=== PATIENT | male | born 1960 | race African-American/Black ===

== ENCOUNTER 2021-12-13 04:13 | Observation (INO) | payer SELFPAY ==
[~2021-12-13] VITALS: Ht 172.7 cm; Wt 54.4 kg
[2021-12-13] MEDS ORDERED: IV NORMAL SALINE 1000ML BAG 1,000 ML IV ONE (05:45)
--- NOTE | 2021-12-13 05:49 | PHYS DOC ---
Adult General Chief Complaint Chief Complaint: HYPERTENSION HPI HPI The patient is a 61-year-old male with a history of hypertension and bipolar disorder, noncompliant with antihypertensive medication for some time. He is a smoker. He presents for evaluation of multiple concerns. First, patient is a worker at [employer] and at about 2 AM this morning, about 3 hours prior to arrival, he began feeling lightheaded at work, as though he would faint, but did not. Associated mild nausea at times. Second, patient notes about 3 weeks of gross hematuria in association with intermittent discomfort to his right and left lower abdomen. States he has never had this before. No associated fevers, vomiting, upper respiratory congestion/rhinorrhea, cough, sore throat, shortness of breath or chest pain of any kind, flank pain, midline back pain, dysuria, polyuria or oliguria, groin pain, changes in bowel habits, pain or swelling to arms or legs. Patient is alert and pleasantly and appropriately interactive and in no acute distress with appropriate vital signs aside from elevated blood pressure upon initial evaluation here in the emergency department. (TOYIN MÉNDEZ MD) Review of Systems Review of Systems A 12 point review of systems was completed and was negative except where noted in HPI above. (TOYIN MÉNDEZ MD) Current Medications Current Medications Current Medications Medications (Trade) Dose Ordered Sig/Parveen Start Time Stop Time Status Last Admin Dose Admin Acetaminophen (Tylenol) 650 mg PRN Q4HRS PRN 12/13/21 07:15 12/14/21 07:14 Amlodipine Besylate (Norvasc) 10 mg 1X STAT 12/13/21 05:39 12/13/21 06:38 DC Info (CONTRAST GIVEN -- Rx MONITORING) 1 each PRN DAILY PRN 12/13/21 06:45 12/15/21 06:44 Iohexol (Omnipaque 300 Mg/ml) 75 ml 1X ONCE 12/13/21 06:45 12/13/21 06:46 DC 12/13/21 06:43 75 ML Ondansetron HCl (Zofran) 4 mg PRN Q8HRS PRN 12/13/21 07:15 12/14/21 07:14 Sodium Chloride 1,000 ml @ 1,000 mls/hr 1X ONCE 12/13/21 05:45 12/13/21 06:44 DC (BLAIR WAGONER DO) Allergies Allergies Allergies Coded Allergies Type Severity Reaction Last Updated Verified No Known Drug Allergies 12/13/21 No (BLAIR WAGONER DO) Physical Exam Physical Exam 61-year-old male appearing nontoxic and in no acute distress. Head is normocephalic and atraumatic. Neck is supple and nontender. Oropharynx is mo ist. Lungs are clear to auscultation at all stations. There is a normal S1 and S2 without rubs or gallops and capillary refill is appropriate, less than 2 seconds globally. Abdomen is soft, nontender and nondistended. No pulsatile mass. Skin is warm and dry without cyanosis, clubbing or edema. Psychiatrically, the patient demonstrates appropriate mood and affect and is alert. Neurologically, cranial nerves II through XII are intact and there are no lateralizing deficits seen. Speech is normal. Language is normal. Coordination is normal. There is no dysmetria with [id number] or h eel-to-nathan bilaterally. Strength is 5 out of 5 in all joints of bilateral upper and lower extremities. Sensation is intact light touch in bilateral upper and lower extremities. Patient ambulates with a narrow, steady, non-ataxic gait here in the emergency department and is alert and oriented x4. Evaluation of the extremities reveals BUEs and BLEs neurovascularly intact distally with strength 5 out of 5, sensation intact light touch in all nerve distributions, radial, DP and PT pulses 2+ and equal bilaterally, capillary refill less than 2 seconds, hands and feet warm and well-perfused. No dependent peripheral edema distally. No calf tenderness swelling bilaterally. Swati's test is negative bilaterally. (TOYIN MÉNDEZ MD) Current Patient Data Vital Signs Vital Signs Date Time Temp Pulse Resp B/P (MAP) Pulse Ox O2 Delivery O2 Flow Rate FiO2 12/13/21 05:36 97.6 83 18 200/122 (148) 100 Room Air 97.6 (BLAIR WAGONER DO) Lab Values Laboratory Tests Test 12/13/21 05:45 White Blood Count 6.1 x10^3/uL (4.0-11.0) Red Blood Count 4.27 x10^6/uL (4.30-5.70) L Hemoglobin 12.9 g/dL (13.0-17.5) L Hematocrit 37.8 % (39.0-53.0) L Mean Corpuscular Volume 89 fL (79-100) Mean Corpuscular Hemoglobin 30 pg (25-35) Mean Corpuscular Hemoglobin Concent 34 g/dL (31-37) Red Cell Distribution Width 14.4 % (11.5-14.5) Platelet Count 124 x10^3/uL (140-400) L Neutrophils (%) (Auto) 73 % (31-73) Lymphocytes (%) (Auto) 15 % (24-48) L Monocytes (%) (Auto) 9 % (0-9) Eosinophils (%) (Auto) 3 % (0-3) Basophils (%) (Auto) 1 % (0-3) Neutrophils # (Auto) 4.5 x10^3/uL (1.8-7.7) Lymphocytes # (Auto) 0.9 x10^3/uL (1.0-4.8) L Monocytes # (Auto) 0.5 x10^3/uL (0.0-1.1) Eosinophils # (Auto) 0.2 x10^3/uL (0.0-0.7) Basophils # (Auto) 0.0 x10^3/uL (0.0-0.2) Prothrombin Time 12.7 SEC (11.7-14.0) Prothrombin Time INR 1.0 (0.8-1.1) Activated Partial Thromboplast Time 27 SEC (24-38) Urine Collection Type Unknown Urine Color Yellow Urine Clarity Clear Urine pH 6.5 (<5.0-8.0) Urine Specific [place] 1.015 (1.000-1.030) Urine Protein Negative mg/dL (NEG-TRACE) Urine Glucose (UA) 250 mg/dL (NEG) Urine Ketones (Stick) Negative mg/dL (NEG) Urine Blood Negative (NEG) Urine Nitrite Negative (NEG) Urine Bilirubin Negative (NEG) Urine Urobilinogen Dipstick 1.0 mg/dL (0.2 mg/dL) Urine Leukocyte Esterase Negative (NEG) Urine RBC 0 /HPF (0-2) Urine WBC 0 /HPF (0-4) Urine Squamous Epithelial Cells Few /LPF Urine Bacteria 0 /HPF (0-FEW) Sodium Level 138 mmol/L (136-145) Potassium Level 3.9 mmol/L (3.5-5.1) Chloride Level 103 mmol/L (98-107) Carbon Dioxide Level 29 mmol/L (21-32) Anion Gap 6 (6-14) Blood Urea Nitrogen 23 mg/dL (8-26) Creatinine 1.4 mg/dL (0.7-1.3) H Estimated GFR (Cockcroft-Gault) 61.9 BUN/Creatinine Ratio 16 (6-20) Glucose Level 91 mg/dL (70-99) Calcium Level 8.5 mg/dL (8.5-10.1) Total Bilirubin 1.0 mg/dL (0.2-1.0) Aspartate Amino Transferase (AST) 28 U/L (15-37) Alanine Aminotransferase (ALT) 23 U/L (16-63) Alkaline Phosphatase 87 U/L (46-116) Troponin I High Sensitivity 17 ng/L (4-75) Total Protein 7.4 g/dL (6.4-8.2) Albumin 3.5 g/dL (3.4-5.0) Albumin/Globulin Ratio 0.9 (1.0-1.7) L Laboratory Tests 12/13/21 05:45 Laboratory Tests 12/13/21 05:45 (BLAIR WAGONER DO) EKG EKG Sinus rhythm, rate 82, no acute ST elevation or depression, [place] 182, QRS 78, QTc 447, EP interpretation. Nonischemic tracing, intervals appropriate. (TOYIN MÉNDEZ MD) Radiology/Procedures Radiology/Procedures [] (TOYIN MÉNDEZ MD) Radiology/Procedures [facility] [address] [place], [place] [id number] IMAGING REPORT Signed PATIENT: TAYLOR WILLOUGHBYOUNT: [id number] : 1960 LOCATION: ER AGE: 61 SEX: M EXAM STATUS: REG ER ORD. PHYSICIAN: TOYIN MÉNDEZ MD REASON: lightheadedness PROCEDURE: CHEST AP ONLY XR CHEST 1V 12/13/2021 6:20 AM INDICATION: Lightheadedness COMPARISON: None available TECHNIQUE: Portable frontal view of the chest is provided. FINDINGS: The cardiomediastinal silhouette is within normal limits. Lungs are clear. There are no significant pleural effusions. There is no pulmonary vascular congestion. No pneumothorax. No suspicious osseous abnormality. IMPRESSION: There is no acute cardiopulmonary process. Electronically signed by: Valentino Pittman MD (12/13/2021 6:33 AM) [facility] DICTATED and SIGNED BY: VALENTINO PITTMAN MD DATE: 12/13/21 [id number] 0 [facility] [address] [place] [address] IMAGING REPORT Signed PATIENT: TAYLOR WILLOUGHBYOUNT: [id number] : 1960 LOCATION: ER AGE: 61 SEX: M EXAM STATUS: REG ER ORD. PHYSICIAN: TOYIN MÉNDEZ MD REASON: BLQ abd pain, hematuria x 3 weeks;OMNI 300, 75ML PROCEDURE: CT ABD PELV W/ IV CONTRST ONLY PQRS Compliance Statement: One or more of the following individualized dose reduction techniques were utilized for this examination: 1. Automated exposure control 2. Adjustment of the mA and/or kV according to patient size 3. Use of iterative reconstruction technique CT abdomen/pelvis with contrast 12/13/2021 6:44 AM INDICATION: Bilateral lower quadrant abdominal pain, hematuria for 3 weeks COMPARISON: None available TECHNIQUE: Multiple axial CT images of the abdomen and pelvis were obtained after the intravenous administration of 75 mL Omnipaque 300. Coronal and sagittal reformats are provided. FINDINGS: There is minimal bibasilar subsegmental atelectasis. Heart size is within normal limits. 5 mm hypodensity within the right hepatic dome is too small characterize, however statistically favored represent benign etiology such as a simple cyst or hemangioma additional indeterminate hypoattenuating lesion identified in the medial segment left hepatic lobe (series 2, image 13) measuring 0.9 cm. Spleen, adrenal glands, pancreas and gallbladder are normal in appearance. Abdominal aorta is normal in course and caliber. There is a borderline enlarged gastrohepatic lymph node measuring 1.2 cm (series 2, image 11). Simple appearing right renal cysts measure up to 0.9 cm in the interpolar right kidney. The kidneys enhance symmetrically. There is no suspicious renal mass. There is no hydronephrosis. There are no suspected calculi within the kidneys, ureters or urinary bladder. Moderate amount of stool noted throughout the colon. Small and large bowel are normal in caliber. There is no evidence for bowel obstruction. There are no pericolonic inflammatory changes. A normal, nondilated appendix is visualized without adjacent inflammatory changes. Urinary bladder within normal limits given degree of distention. Prostate mildly enlarged measuring 4.4 x 4.6 cm. No suspicious osseous abnormality. IMPRESSION: No findings to suggest obstructive uropathy. No calculi within the ureters or urinary bladder. Prostate mildly enlarged. Correlate with PSA. Indeterminate 9 mm hypoattenuating lesion within the medial segment left hepatic lobe. Findings favor benign etiology such as a simple cyst or hemangioma in the absence of underlying malignancy. Moderate amount stool noted throughout the colon. Nonspecific gastrohepatic lymph node measures 1.2 cm. 3 month follow-up CT abdomen could be of benefit to assess for stability. Correlate with any prior history of gastritis. Electronically signed by: Valentino Pittman MD (12/13/2021 6:57 AM) [facility] DICTATED and SIGNED BY: VALENTINO PITTMAN MD DATE: 12/13/21 [id number] 0 (BLAIR WAGONER DO) Course & Med Decision Making Course & Med Decision Making Well-appearing 61-year-old gentleman presenting for evaluation of lightheadedness at work earlier overnight, elevated blood pressure and 3 weeks of hematuria with intermittent bilateral lower quadrant abdominal pain, although none today. Will place IV and given IV fluid bolus, a dose of amlodipine for hypertension and will check labs, EKG, chest x-ray and CT of the abdomen and pelvis with contrast as noted and will then reevaluate. 0600: Transition of care to Dr. Wagoner pending work-up as above and reevaluation for disposition. (TOYIN MÉNDEZ MD) Course & Med Decision Making The patient remains awake, alert and in no acute distress. Patient does have an admitted history hypertension to which he is poorly compliant. Given the patient's history of poorly controlled hypertension as well as his new syncopal symptoms. I have elected to admit him to observation for further evaluation in the hospital. The patient understands and has agreed to be admitted for further evaluation. He will be admitted to the hospitalist service. Currently he is asymptomatic. Additionally he confirms not having any chest pain or shortness of air. He is awaiting transport to the floor. (BLAIR WAGONER DO) Dragon Disclaimer Dragon Disclaimer This electronic medical record was generated, in whole or in part, using a voice recognition dictation system. (TOYIN MÉNDEZ MD) Departure Departure Impression: Primary Impression: Pre-syncope Additional Impression: Poorly-controlled hypertension Disposition: ADMITTED INPATIENT Admitting Physician: DONNA (BLAIR WAGONER DO) Condition: STABLE Referrals: NO PCP (PCP) Problem Qualifiers TOYIN MÉNDEZ MD Dec 13, 2021 05:49 BLAIR WAGONER DO Dec 13, 2021 07:02
[2021-12-13 06:01] LABS: BILIRUBIN,URINE NEGATIVE (NEG); CLARITY,URINE CLEAR; COLOR,URINE YELLOW; NITRITE,URINE NEGATIVE (NEG); PH,URINE 6.5 (<5.0-8.0); PROTEIN,URINE NEGATIVE (NEG-TRACE)
[2021-12-13 06:13] LABS: CALCIUM 8.5 mg/dL (8.5-10.1); CREATININE 1.4 mg/dL (0.7-1.3); GFR 61.9; POTASSIUM 3.9 mmol/L (3.5-5.1)
[2021-12-13 06:19] LABS: ALBUMIN 3.5 g/dL (3.4-5.0); ALBUMIN/GLOBULIN RATIO 0.9 (1.0-1.7); TOTAL PROTEIN 7.4 g/dL (6.4-8.2)
[2021-12-13 06:22] LABS: BACTERIA,URINE 0 /HPF (0-FEW); RBC,URINE 0 /HPF (0-2); WBC,URINE 0 /HPF (0-4)
[2021-12-13 06:23] LABS: BASO % 1 % (0-3); EOS # 0.2 x10^3/uL (0.0-0.7); EOS % 3 % (0-3); HEMATOCRIT 37.8 % (39.0-53.0); HEMOGLOBIN 12.9 g/dL (13.0-17.5); LYMPH # 0.9 x10^3/uL (1.0-4.8); LYMPH % 15 % (24-48); MEAN CORPUSCULAR HEMOGLOBIN 30 pg (25-35); MEAN CORPUSCULAR HGB CONC 34 g/dL (31-37); MEAN CORPUSCULAR VOLUME 89 fL (79-100); MONO # 0.5 x10^3/uL (0.0-1.1); MONO % 9 % (0-9); NEUT # 4.5 x10^3/uL (1.8-7.7); NEUT % 73 % (31-73); PLATELET COUNT 124 x10^3/uL (140-400); RED BLOOD COUNT 4.27 x10^6/uL (4.30-5.70); RED CELL DISTRIBUTION WIDTH 14.4 % (11.5-14.5); WHITE BLOOD COUNT 6.1 x10^3/uL (4.0-11.0)
--- NOTE | 2021-12-13 06:35 | RAD ---
XR CHEST 1V 12/13/2021 6:20 AM INDICATION: Lightheadedness COMPARISON: None available TECHNIQUE: Portable frontal view of the chest is provided. FINDINGS: The cardiomediastinal silhouette is within normal limits. Lungs are clear. There are no significant pleural effusions. There is no pulmonary vascular congestion. No pneumothora x. No suspicious osseous abnormality. IMPRESSION: There is no acute cardiopulmonary process. Electronically signed by: Salena Ty MD (12/13/2021 6:33 AM) [facility]
[2021-12-13] MEDS ORDERED: CONTRAST GIVEN. MC PRN (06:45)
[2021-12-13] MEDS ORDERED: IOHEXOL 300 MG/ML 100ML VIAL. IV ONE (06:45)
[2021-12-13 06:46] LABS: PROTHROMBIN TIME PATIENT 12.7 SEC (11.7-14.0)
--- NOTE | 2021-12-13 06:47 | EKG ---
[facility] [address] [place] [address] Test Date: 2021-12-13 Test Time: 05:36:02 Pat Name: MARIAN WILLOUGHBY Department: Room: Gender: M [employer]: : 1960 Requested By: TOYIN MÉNDEZ Order Number: [id number] Reading MD: Ameya Multani Measurements Intervals [place] Rate: 82 P: 55 MN: 182 QRS: -60 QRSD: 78 T: 34 QT: 380 QTc: 447 Interpretive Statements SINUS RHYTHM ABNORMAL LEFT AXIS DEVIATION LEFT ANTERIOR FASCICULAR BLOCK Electronically Signed On 12-17-2021 18:10:01 [employer] by Ameya Multani
--- NOTE | 2021-12-13 07:00 | RAD ---
PQRS Compliance Statement: One or more of the following individualized dose reduction techniques were utilized for this examinat ion: 1. Automated exposure control 2. Adjustment of the mA and/or kV according to patient size 3. Use of iterative reconstruction technique CT abdomen/pelvis with contrast 12/13/2021 6:44 AM INDICATION: Bilateral lower quadrant abdominal pain, hematuria for 3 weeks COMPARISON: None available TECHNIQUE: Multiple axial CT images of the abdomen and pelvis were obtained after the intravenous adm inistration of 75 mL Omnipaque 300. Coronal and sagittal reformats are provided. FINDINGS: There is minimal bibasilar subsegmental atelectasis. Heart size is within normal limits. 5 mm hypoden sity within the right hepatic dome is too small characterize, however statistically favored represent benign etiology such as a simple cyst or hemangioma additional indeterminate hypoattenuating lesion identified in the medial segment left hepatic lobe (series 2, image 13) measuring 0.9 cm. Spleen, adr enal glands, pancreas and gallbladder are normal in appearance. Abdominal aorta is normal in course a nd caliber. There is a borderline enlarged gastrohepatic lymph node measuring 1.2 cm (series 2, image 11). Simple appearing right renal cysts measure up to 0.9 cm in the interpolar right kidney. The kid neys enhance symmetrically. There is no suspicious renal mass. There is no hydronephrosis. There are no suspected calculi within the kidneys, ureters or urinary bladder. Moderate amount of stool noted t hroughout the colon. Small and large bowel are normal in caliber. There is no evidence for bowel obst ruction. There are no pericolonic inflammatory changes. A normal, nondilated appendix is visualized w ithout adjacent inflammatory changes. Urinary bladder within normal limits given degree of distention . Prostate mildly enlarged measuring 4.4 x 4.6 cm. No suspicious osseous abnormality. IMPRESSION: No findings to suggest obstructive uropathy. No calculi within the ureters or urinary bladder. Prosta te mildly enlarged. Correlate with PSA. Indeterminate 9 mm hypoattenuating lesion within the medial segment left hepatic lobe. Findings favor benign etiology such as a simple cyst or hemangioma in the absence of underlying malignancy. Moderate amount stool noted throughout the colon. Nonspecific gastrohepatic lymph node measures 1.2 cm. 3 month follow-up CT abdomen could be of benefi t to assess for stability. Correlate with any prior history of gastritis. Electronically signed by: Salena Ty MD (12/13/2021 6:57 AM) [facility]
[2021-12-13] MEDS ORDERED: ACETAMINOPHEN 325 MG TABLET. PO PRN ×2 (07:15→08:15)
[2021-12-13] MEDS ORDERED: ONDANSETRON PF 4 MG/2 ML VIAL. IVP PRN ×2 (07:15→08:15)
[2021-12-13] MEDS ORDERED: ELECTROLYTE (NON-ICU) PROTOCOL. MC PRN (08:15)
[2021-12-13] MEDS ORDERED: CALCIUM CARBONATE 500 MG TAB.CHEW PO PRN (08:15)
[2021-12-13] MEDS ORDERED: oxyCODONE/APAP 5/325 1 TAB TABLET PO PRN ×2 (08:15)
[2021-12-13] MEDS ORDERED: ZOLPIDEM 5 MG TABLET. PO PRN (08:15)
--- NOTE | 2021-12-13 08:25 | PDOC1 ---
History and Physical Date of Service: DOS: DATE: 12/13/21 TIME: 08:20 Chief Complaint: Chief Complain: dizziness History of Present Illness: HPI: Patient is a 61-year-old -[place] male presented to the emergency room overnight due to lightheadedness and dizziness at work. Jansen he was going to pass out but. Also having some nausea with the episode. 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 He is supposed to be taking amlodipine 10 mg daily at home but openly admits he is noncompliant at times. He is a pretty poor historian overall. When I evaluated him he was resting in bed. Easily awoken till he was still feeling a bit lightheaded. More interested in sleeping. Denies any respiratory abdominal symptoms. There is mention of hematuria going on for 3 weeks recommending outpatient follow-up for him. We will resume home amlodipine and see how patient does. PT OT ordered. If no improvement may need cards consult. Past Medical/Surgical History: PMH/PSH: HTN, Bipolar Allergies: Allergies: Coded Allergies: No Known Drug Allergies (Unverified , 12/13/21) Family History: Family History: HTN Social History: Social History: Daily tobacco smoker. Occasional alcohol use denies drug use Current Medications: Current Medications Current Medications Sodium Chloride 1,000 ml @ 1,000 mls/hr 1X ONCE IV Last administered on 12/13/21at 07:19; Start 12/13/21 at 05:45; Stop 12/13/21 at 06:44; Status DC Amlodipine Besylate (Norvasc) 10 mg 1X STAT PO Last administered on 12/13/21at 07:19; Start 12/13/21 at 05:39; Stop 12/13/21 at 06:38; Status DC Iohexol (Omnipaque 300 Mg/ml) 75 ml 1X ONCE IV Last administered on 12/13/21at 06:43; Start 12/13/21 at 06:45; Stop 12/13/21 at 06:46; Status DC Info (CONTRAST GIVEN -- Rx MONITORING) 1 each PRN DAILY PRN MC SEE COMMENTS; Start 12/13/21 at 06:45; Stop 12/15/21 at 06:44 Ondansetron HCl (Zofran) 4 mg PRN Q8HRS PRN IVP NAUSEA/VOMITING; Start 12/13/21 at 07:15; Stop 12/14/21 at 07:14 Acetaminophen (Tylenol) 650 mg PRN Q4HRS PRN PO FEVER > 100.3'F; Start 12/13/21 at 07:15; Stop 12/14/21 at 07:14 Amlodipine Besylate (Norvasc) 10 mg DAILY PO ; Start 12/13/21 at 09:00 Ondansetron HCl (Zofran) 4 mg PRN Q6HRS PRN IVP NAUSEA/VOMITING; Start 12/13/21 at 08:15 Calcium Carbonate/ Glycine (Tums) 500 mg PRN Q3HRS PRN PO UPSET STOMACH; Start 12/13/21 at 08:15 Zolpidem Tartrate (Ambien) 5 mg PRN QHS PRN PO INSOMNIA, MAY REPEAT IN 1HR; Start 12/13/21 at 08:15 Info (Non-Icu Electrolyte Protocol) 1 ea PRN DAILY PRN MC SEE COMMENTS; Start 12/13/21 at 08:15 Oxycodone/ Acetaminophen (Percocet 5/325) 1 tab PRN Q4HRS PRN PO MILD PAIN, 1ST CHOICE; Start 12/13/21 at 08:15 Oxycodone/ Acetaminophen (Percocet 5/325) 2 tab PRN Q4HRS PRN PO MODERATE PAIN, SEVERE PAIN; Start 12/13/21 at 08:15 Acetaminophen (Tylenol) 650 mg PRN Q6HRS PRN PO Headaches, Temp > 101.5F; Start 12/13/21 at 08:15 Senna/Docusate Sodium (Senna Plus) 1 tab BID PO ; Start 12/13/21 at 09:00 Heparin Sodium (Porcine) (Heparin Sodium) 5,000 unit Q8HRS SQ ; Start 12/13/21 at 14:00 ROS: Review of Systems Review of System Unless noted in HPI 14 point review of systems was negative Physical Exam: Vital Signs: Vital Signs Date Time Temp Pulse Resp B/P (MAP) Pulse Ox O2 Delivery O2 Flow Rate FiO2 12/13/21 07:19 73 184/112 12/13/21 07:00 18 100 Room Air 12/13/21 05:36 97.6 97.6 Physcial Exam: GEN: No apparent distress. Alert and oriented HEENT: Normal cephalic, atraumatic, external auditory canals are patent EYES: Extraocular muscles are intact, pupil are equally round and reactive to light and accommodation MUSCULOSKELETAL: Well developed , well nourished, good range of motion ENDOCRINE: No thyromegaly was palpated LYMPHATICS: No cervical chain or axillary nodes were noted HEMATOPOIETIC: No bruising NECK: Supple, no JVD, no thyromegaly was noted LUNGS: Clear to auscultation in all lung arriaga without rhonchi or wheezing HEART: RRR, S1, S2 present. Peripheral pulses intact, no obvious murmurs noted ABDOMEN: Soft, nontender. Positive bowel sounds, no organomegaly, normal bowel sounds EXTREMITIES: Without clubbing, cyanosis, or edema. Pedal pulses intact. Negative Homans sign NEUROLOGIC: Normal speech and tone. A&O x 3, moves all extremities, no obvious focal deficits PSYCHIATRIC: Flat affect SKIN: No ulcerations or rashes, good skin turgor, no jaundice VASCULAR: Good capillary refill, neurovascular bundle appears to be intact Labs: Labs: Laboratory Tests Test 12/13/21 05:45 White Blood Count 6.1 x10^3/uL (4.0-11.0) Red Blood Count 4.27 x10^6/uL (4.30-5.70) Hemoglobin 12.9 g/dL (13.0-17.5) Hematocrit 37.8 % (39.0-53.0) Mean Corpuscular Volume 89 fL (79-100) Mean Corpuscular Hemoglobin 30 pg (25-35) Mean Corpuscular Hemoglobin Concent 34 g/dL (31-37) Red Cell Distribution Width 14.4 % (11.5-14.5) Platelet Count 124 x10^3/uL (140-400) Neutrophils (%) (Auto) 73 % (31-73) Lymphocytes (%) (Auto) 15 % (24-48) Monocytes (%) (Auto) 9 % (0-9) Eosinophils (%) (Auto) 3 % (0-3) Basophils (%) (Auto) 1 % (0-3) Neutrophils # (Auto) 4.5 x10^3/uL (1.8-7.7) Lymphocytes # (Auto) 0.9 x10^3/uL (1.0-4.8) Monocytes # (Auto) 0.5 x10^3/uL (0.0-1.1) Eosinophils # (Auto) 0.2 x10^3/uL (0.0-0.7) Basophils # (Auto) 0.0 x10^3/uL (0.0-0.2) Prothrombin Time 12.7 SEC (11.7-14.0) Prothromb Time International Ratio 1.0 (0.8-1.1) Activated Partial Thromboplast Time 27 SEC (24-38) Urine Collection Type Unknown Urine Color Yellow Urine Clarity Clear Urine pH 6.5 (<5.0-8.0) Urine Specific [place] 1.015 (1.000-1.030) Urine Protein Negative mg/dL (NEG-TRACE) Urine Glucose (UA) 250 mg/dL (NEG) Urine Ketones (Stick) Negative mg/dL (NEG) Urine Blood Negative (NEG) Urine Nitrite Negative (NEG) Urine Bilirubin Negative (NEG) Urine Urobilinogen Dipstick 1.0 mg/dL (0.2 mg/dL) Urine Leukocyte Esterase Negative (NEG) Urine RBC 0 /HPF (0-2) Urine WBC 0 /HPF (0-4) Urine Squamous Epithelial Cells Few /LPF Urine Bacteria 0 /HPF (0-FEW) Sodium Level 138 mmol/L (136-145) Potassium Level 3.9 mmol/L (3.5-5.1) Chloride Level 103 mmol/L (98-107) Carbon Dioxide Level 29 mmol/L (21-32) Anion Gap 6 (6-14) Blood Urea Nitrogen 23 mg/dL (8-26) Creatinine 1.4 mg/dL (0.7-1.3) Estimated GFR (Cockcroft-Gault) 61.9 BUN/Creatinine Ratio 16 (6-20) Glucose Level 91 mg/dL (70-99) Calcium Level 8.5 mg/dL (8.5-10.1) Total Bilirubin 1.0 mg/dL (0.2-1.0) Aspartate Amino Transf (AST/SGOT) 28 U/L (15-37) Alanine Aminotransferase (ALT/SGPT) 23 U/L (16-63) Alkaline Phosphatase 87 U/L (46-116) Troponin I High Sensitivity 17 ng/L (4-75) Total Protein 7.4 g/dL (6.4-8.2) Albumin 3.5 g/dL (3.4-5.0) Albumin/Globulin Ratio 0.9 (1.0-1.7) Laboratory Tests Test 12/13/21 05:45 White Blood Count 6.1 x10^3/uL (4.0-11.0) Red Blood Count 4.27 x10^6/uL (4.30-5.70) Hemoglobin 12.9 g/dL (13.0-17.5) Hematocrit 37.8 % (39.0-53.0) Mean Corpuscular Volume 89 fL (79-100) Mean Corpuscular Hemoglobin 30 pg (25-35) Mean Corpuscular Hemoglobin Concent 34 g/dL (31-37) Red Cell Distribution Width 14.4 % (11.5-14.5) Platelet Count 124 x10^3/uL (140-400) Neutrophils (%) (Auto) 73 % (31-73) Lymphocytes (%) (Auto) 15 % (24-48) Monocytes (%) (Auto) 9 % (0-9) Eosinophils (%) (Auto) 3 % (0-3) Basophils (%) (Auto) 1 % (0-3) Neutrophils # (Auto) 4.5 x10^3/uL (1.8-7.7) Lymphocytes # (Auto) 0.9 x10^3/uL (1.0-4.8) Monocytes # (Auto) 0.5 x10^3/uL (0.0-1.1) Eosinophils # (Auto) 0.2 x10^3/uL (0.0-0.7) Basophils # (Auto) 0.0 x10^3/uL (0.0-0.2) Prothrombin Time 12.7 SEC (11.7-14.0) Prothromb Time International Ratio 1.0 (0.8-1.1) Activated Partial Thromboplast Time 27 SEC (24-38) Urine Collection Type Unknown Urine Color Yellow Urine Clarity Clear Urine pH 6.5 (<5.0-8.0) Urine Specific [place] 1.015 (1.000-1.030) Urine Protein Negative mg/dL (NEG-TRACE) Urine Glucose (UA) 250 mg/dL (NEG) Urine Ketones (Stick) Negative mg/dL (NEG) Urine Blood Negative (NEG) Urine Nitrite Negative (NEG) Urine Bilirubin Negative (NEG) Urine Urobilinogen Dipstick 1.0 mg/dL (0.2 mg/dL) Urine Leukocyte Esterase Negative (NEG) Urine RBC 0 /HPF (0-2) Urine WBC 0 /HPF (0-4) Urine Squamous Epithelial Cells Few /LPF Urine Bacteria 0 /HPF (0-FEW) Sodium Level 138 mmol/L (136-145) Potassium Level 3.9 mmol/L (3.5-5.1) Chloride Level 103 mmol/L (98-107) Carbon Dioxide Level 29 mmol/L (21-32) Anion Gap 6 (6-14) Blood Urea Nitrogen 23 mg/dL (8-26) Creatinine 1.4 mg/dL (0.7-1.3) Estimated GFR (Cockcroft-Gault) 61.9 BUN/Creatinine Ratio 16 (6-20) Glucose Level 91 mg/dL (70-99) Calcium Level 8.5 mg/dL (8.5-10.1) Total Bilirubin 1.0 mg/dL (0.2-1.0) Aspartate Amino Transf (AST/SGOT) 28 U/L (15-37) Alanine Aminotransferase (ALT/SGPT) 23 U/L (16-63) Alkaline Phosphatase 87 U/L (46-116) Troponin I High Sensitivity 17 ng/L (4-75) Total Protein 7.4 g/dL (6.4-8.2) Albumin 3.5 g/dL (3.4-5.0) Albumin/Globulin Ratio 0.9 (1.0-1.7) Assessment/Plan Assessment/Plan Presyncope, hypertensive urgency. History of bipolar and uncontrolled hypertension -Presented from work today with lightheadedness that have been going on during her shift. Found to have blood pressure of 200. on home amlodipine 10 mg but compliance questionable -We will resume his home amlodipine -Cardiac diet -Given syncopal-like symptoms will see if PT OT can evaluate -May need second blood pressure agent if amlodipine insufficient -DVT prophylaxis -Plan discussed with bedside RN Justifications for Admission Other Justification DAGOBERTO DURAN MD Dec 13, 2021 08:25
[2021-12-13] MEDS ORDERED: SENNOSIDES/DOCUSATE 8.6/50MG TABLET. PO SCH (09:00)
[2021-12-13 11:05] VITALS: BP 173/100
[2021-12-13] MEDS ORDERED: AMLO-187 PO (11:39)
[2021-12-13 12:25] VITALS: BP 159/92
--- NOTE | 2021-12-13 12:28 | NUR ---
Pt was admitted at 1105 from ED to room 111, pt is a CVC admit. Pt oriented to room, blood pressure medication given as ordered. BP rechecked, called Dr Gaming, order to dc received.
--- NOTE | 2021-12-13 12:49 | NUR ---
pt stated his vehicle is at work, he has no one to pick him up and take him there. transportation will take him at 1430. rx for amlodipine 1 month supply called in to [facility] in [place] per dr graf request.
[2021-12-13] MEDS ORDERED: HEPARIN for SUB-Q USE 5,000 UNIT/ML VIAL. SQ SCH (14:00)
--- NOTE | 2021-12-13 14:44 | NUR ---
discharge instructions reviewed with pt, all questions answered. piv and tele dc'd. transportation escorted pt out.
== END 2021-12-13 14:45 | disposition home or self-care (01) ==
LOC: ER 04:13 → ED HOLD 07:10 → 1 WEST ICU 07:25
PROVIDERS: ADMIT Student in an Organized Health Care Education/Training Program; ATTEND Student in an Organized Health Care Education/Training Program
DX: I16.0 Hypertensive urgency (principal); R55 Syncope and collapse; I10 Essential (primary) hypertension; F31.9 Bipolar disorder, unspecified; D18.00 Hemangioma unspecified site; F17.200 Nicotine dependence, unspecified, uncomplicated; Z91.14 Patient's other noncompliance with medication regimen; Z91.19 Patient's noncompliance with other medical treatment and regimen
CPT/HCPCS: 36415; 71045; 74177; 80053; 81001; 84484; 85025; 85610; 85730; 93005; 96360; 99285; G0378; J7030; Q9967; G0379